=== PATIENT | male | born 1970 | race Caucasian/White ===

== ENCOUNTER 2020-09-13 13:39 | Emergency (ER) | payer BC ==
[~2020-09-13] VITALS: Ht 182.9 cm; Wt 90.7 kg
[2020-09-13] MEDS ORDERED: OTEZLA30 MG PO (13:47)
[2020-09-13 13:53] LABS: ABSOLUTE NEUTROPHILS 6.3 thou/uL (1.4-8.2); BASOPHILS 0.9 % (0.0-2.0); HEMATOCRIT 45.8 % (42.0-52.0); HEMOGLOBIN 15.2 gm/dL (14.0-18.0); LYMPHOCYTES 41.8 % (24.0-44.0); MCHC 33.2 g/dL (28.0-37.0); MCV 87.3 fL (80.0-100.0); MONOCYTES 10.5 % (1.0-8.0); PLATELET COUNT 368 thou/uL (150-400); POLYS 45.8 % (36.0-66.0); RBC 5.25 mil/uL (4.50-6.00); RDW 14.2 % (10.5-14.5); WBC 13.8 thou/uL (4.0-11.0)
[2020-09-13 14:29] LABS: ALBUMIN 3.9 g/dL (3.4-5.0); ANION GAP 19 mmol/L (7-16); BUN 9 mg/dL (7-18); CALCIUM 9.3 mg/dL (8.5-10.1); CHLORIDE 102 mmol/L (98-107); CO2 19 mmol/L (21-32); CREATININE 1.6 mg/dL (0.7-1.3); GLUCOSE 137 mg/dL (74-106); SGOT 26 U/L (15-37); SGPT 94 U/L (16-63); SODIUM 140 mmol/L (136-145); TOTAL BILIRUBIN 0.7 mg/dL (0.2-1.0); TOTAL PROTEIN 8.1 g/dL (6.4-8.2); TROPONIN-I <0.06 ng/mL (<0.06)
[2020-09-13 14:36] LABS: POTASSIUM 2.2 mmol/L (3.5-5.1)
[2020-09-13 15:02] LABS: SALICYLATE < 2.8 mg/dL (2.8-20.0)
[2020-09-13 15:49] LABS: URINE BILIRUBIN NEGATIVE (Negative); URINE BLOOD NEGATIVE (Negative); URINE CLARITY CLEAR; URINE COLOR YELLOW; URINE GLUCOSE-RANDOM* NEGATIVE (Negative); URINE KETONES NEGATIVE (Negative); URINE LEUKOCYTES-REFLEX NEGATIVE (Negative); URINE NITRITE-REFLEX NEGATIVE (Negative); URINE PROTEIN (DIPSTICK) NEGATIVE (Negative)
[2020-09-13 15:58] LABS: AMP/METHAMP Negative (Negative); BARBITURATES Negative (Negative); BENZODIAZEPINES Negative (Negative); COCAINE Negative (Negative); METHADONE Negative (Negative); OPIATES Negative (Negative); PCP Negative (Negative)
[2020-09-13] MEDS ORDERED: POTASSIUM20 PO (17:45)
[2020-09-13 17:49] VITALS: BP 139/81
--- NOTE | 2020-09-14 11:05 | EKG ---
[address] [place] [address] ELECTROCARDIOGRAM REPORT Name: LUANA KEE Room #: [facility] ROSALIO [place]#: [id number] Admission: 09/13/20 Attend Phys: Discharge: 09/13/20 Date of : 66 Report #: [id number] [facility] ED Test Date: 2020-09-13 Test Time: 13:49:25 Pat Name: LUANA KEE Department: Room: Gender: Senior [employer] Ad[employer] Developer: GUCCI : 1970 Requested By: Wellington Tyler Order Number: [id number] MD: Gopal Pablo Measurements Intervals [place] Rate: 70 P: 37 [place]: 155 QRS: 74 QRSD: 81 T: -58 QT: 383 QTc: 414 Interpretive Statements Sinus rhythm Borderline T abnormalities, lateral leads Compared to ECG 04/12/2007 12:24:29 Electronically Signed On 09-14-2020 11:05:03 CDT by Gopal Pablo [email or web address] <ELECTRONICALLY SIGNED> By: Gopal Pablo MD 09/14/20 1105 [id number] MD USHA Lopez
== END 2020-09-13 18:15 | disposition home or self-care (01) ==
LOC: ER 13:39
PROVIDERS: Physician Assistant
DX: R56.9 Unspecified convulsions (principal); E87.6 Hypokalemia; Z79.899 Other long term (current) drug therapy